=== PATIENT | female | born 1970 | race Caucasian/White ===

== ENCOUNTER 2021-11-19 11:42 | Emergency (ER) | payer OTHER ==
[2021-11-19 12:30] VITALS: BP 176/94; PULSE 72; RESP 18; TEMP 98.8
[2021-11-19] MEDS ORDERED: KETOROLAC 15 MG/ML 1 ML VIAL IVP STA (12:49)
[2021-11-19] MEDS ORDERED: SODIUM CHLORIDE 0.9% 1,000 ML IV STA (12:49)
[2021-11-19] MEDS ORDERED: ONDANSETRON 4 MG/2 ML VIAL IVP STA (12:49)
--- NOTE | 2021-11-19 13:56 | ED ---
General Adult HPI - General Chief complaint: Headache Stated complaint: pain lt side of head, no injury Time Seen by Provider: 11/19/21 12:32 Source: patient, RN notes reviewed Mode of arrival: ambulatory Limitations: no limitations - History of Present Illness Initial comments: 51-year-old female presents to the emergency department for evaluation of pippa narayan. Patient states she has a history of migraine headaches and feels that this is different from her typical. States pain is exacerbated by exposure to cold air. Accompanied by mild nausea. Reports headache discomfort has occurred intermittently the past few days and waxes and wanes in intensity. Patient states she did take her Imitrex this morning with no relief. Denies fever, chills, vision changes, ear pain, light sensitivity, dizziness, chest pain, shortness of breath, abdominal pain, vomiting, diarrhea, or dysuria; no changes in gait, coordination, or speech pattern. - Related Data Allergies Allergy/AdvReac Type Severity Reaction Status Date / Time adhesive tape AdvReac Itching Verified 11/19/21 12:30 Review of Systems ROS Statement: Those systems with pertinent positive or pertinent negative responses have been documented in the HPI. ROS Other: All systems not noted in ROS Statement are negative. 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 Initial temperature 98.8, pulse 72, respirations 18, blood pressure 176/94, pulse ox 96% on room air.) General appearance: alert, in no apparent distress Head exam: Present: atraumatic, normocephalic, normal inspection Eye exam: Present: normal appearance, PERRL, EOMI. Absent: scleral icterus, conjunctival injection, periorbital swelling Pupils: Present: normal accommodation ENT exam: Present: normal exam, normal oropharynx, mucous membranes moist, TM's normal bilaterally Expanded Ear exam: Present: normal external inspection. Absent: auricular hematoma, auricular trauma Mouth exam: Present: normal external inspection Throat exam: normal inspection Neck exam: Present: normal inspection, full ROM. Absent: tenderness, meningismus, lymphadenopathy Respiratory exam: Present: normal lung sounds bilaterally. Absent: respiratory distress, wheezes, rales, rhonchi, stridor Cardiovascular Exam: Present: regular rate, normal rhythm, normal heart sounds. Absent: systolic murmur, diastolic murmur, rubs, gallop, clicks GI/Abdominal exam: Present: soft, normal bowel sounds. Absent: distended, tenderness, guarding, rebound, rigid Neurological exam: Present: alert, oriented X3, CN II-XII intact, normal gait Expanded Patient oriented to: Present: person, place, time Speech: Present: fluid speech Cranial nerves: EOM's Intact: Normal, Nystagmus: Normal Ataxia: Absent: yes Cerebellar function: Romberg: Normal Motor strength exam: RUE: 5, LUE: 5, RLE: 5, LLE: 5 Eye Response: (4) open spontaneously Motor Response: (6) obeys commands Verbal Response: (5) oriented Mirna Total: 15 Psychiatric exam: Present: normal affect, normal mood Skin exam: Present: warm, dry, intact, normal color. Absent: rash Course Vital Signs 11/19/21 12:20 Temperature 98.8 F Pulse Rate 72 Respiratory 18 Rate Blood Pressure 176/94 O2 Sat by Pulse 96 Oximetry - Reevaluation(s) Reevaluation #1: 11/19/21 13:45 Upon reevaluation, patient's symptoms are relatively unchanged. States her pain level has improved from an 8/10 to a 6/10. No further or worsening symptoms. 11/19/21 15:00 Patient reevaluated. States headache has completely resolved. No dizziness, vision changes, nausea, or additional associated symptoms. Did discuss findings from CT; patient will be discharged home to follow up on an outpatient basis. Repeat vital signs: T=98.1, RR=16, HR=72, PB=443/82, SpO2=97% room air. Medical Decision Making - Medical Decision Making 51-year-old female with a past medical history of migraine headaches presents to the emergency department for evaluation of left-sided headache that has occurred intermittently over the past few days. Upon exam, patient is well-appearing though complains of moderate amount of discomfort. Complains of headache pain to the left parietal occipital area that is exacerbated by exposure to cold air. Does have a history of migraine headaches, though states this headache is different and was not accompanied by light sensitivity, but did have mild nausea. Thorough neurological exam performed with no focal deficits identified. Patient was given toradol and zofran along with IV fluids with resolution of symptoms. CT of the brain did show a small prominent area on basilar tip that could be associated with a tiny aneurysm. Findings were discussed my attending, Dr. Dickinson. As patient has had this headache intermittently and it is exacerbated by cold exposure, it is not likely to be associated. Neurological status is intact and symptoms resolved with simple intervention. Results were explained and reviewed thoroughly with patient. Appropriate follow up care was reiterated. Strict return parameters were discussed. Patient verbalizes understanding and agrees with this plan. This patient's care was provided in collaboration with my attending Dr. Dickinson. - Radiology Data Radiology results: report reviewed, image reviewed CT of the brain was obtained. Report was reviewed in entirety. Impression per Dr. Little is no acute hemorrhage or mass effect. 3 mm fusiform prominence and basilar tip could be associated with a small aneurysm. Correlate clinically. Disposition Clinical Impression: Headache Disposition: HOME SELF-CARE Condition: Stable Instructions (If sedation given, give patient instructions): Acute Headache (ED) Additional Instructions: Continue taking home medications as prescribed. Log your headaches- document all symptoms. Please call your PCP tomorrow morning to schedule a follow up appointment to discuss findings from CT. A neurologist's contact information is listed on your paperwork for follow up if you prefer, however, this office is not local. Return to the emergency department with any new, worsening, or concerning symptoms as we discussed. Is patient prescribed a controlled substance at d/c from ED?: No Referrals: None,Stated [Primary Care Provider] - 1-2 days Aissatou Valencia DO [STAFF PHYSICIAN] - 1-2 days Time of Disposition: 15:25
--- NOTE | 2021-11-19 14:05 | CT ---
EXAMINATION TYPE: CT brain wo con DATE OF EXAM: 11/19/2021 COMPARISON: None HISTORY: pain left side back of head CT DLP: 1013.4 mGycm Automated exposure control for dose reduction was used. FINDINGS: Ventricular system is midline without evidence of displacement. No acute hemorrhage or mass effect. M ild prominence of the basilar tip could be associated with a fusiform aneurysm measuring 3 mm. Orbits are symmetric. Sinuses are clear. Calvarium intact. Craniocervical junction maintained. IMPRESSION: NO ACUTE HEMORRHAGE OR MASS EFFECT. IF CLINICALLY WARRANTED CORRELATE WITH MRI. 3 MM FUSIFORM PROMINENCE AND BASILAR TIP COULD BE ASSOCIATED WITH A SMALL ANEURYSM. CORRELATE CLINICA LLY.
== END 2021-11-19 15:31 | disposition home or self-care (01) ==
LOC: EC 11:42
DX: R51.9 Headache, unspecified (principal); F17.200 Nicotine dependence, unspecified, uncomplicated; Z91.09 Other allergy status, other than to drugs and biological substances; Z86.69 Personal history of other diseases of the nervous system and sense organs
CPT/HCPCS: 70450; 99284; 96374; 96375; 96361; J2405; J1885